=== PATIENT | female | born 1935 ===

== ENCOUNTER 2019-12-25 10:12 | Emergency (ER) | payer OTHER ==
[~2019-12-25] VITALS: Ht 157.5 cm; Wt 59.9 kg
[~2019-12-25 10:12] MED LIST: BENADRYL50 MG PO; CALTRATE 600600 MG PO; CEFADROXIL500 MG PO; METHYLPRED4 MG/DOSE- PO; NEXIUM20 MG/PACK PO; RELAGESIC TABL1 EACH PO; SYNTHROID100 MCG PO; VITAMIN A TP; VITAMIN B12-FO1 EACH; [UNRECOGNIZED DRUG - OTHER] TP
[2019-12-25] MEDS ORDERED: VALSARTAN80 MG PO (10:34)
== END 2019-12-25 12:27 | disposition home or self-care (01) ==
LOC: ER 10:12
DX: M94.0 Chondrocostal junction syndrome [Tietze] (principal); R07.89 Other chest pain; M62.830 Muscle spasm of back; S20.212S Contusion of left front wall of thorax, sequela; S20.211S Contusion of right front wall of thorax, sequela; W18.09XS Striking against other object with subsequent fall, sequela

== ENCOUNTER 2021-10-07 11:06 | Emergency (ER) | payer OTHER ==
[~2021-10-07] VITALS: Ht 160 cm; Wt 61.7 kg
[~2021-10-07 11:06] MED LIST changes: +VALSARTAN80 MG PO
[2021-10-07] MEDS ORDERED: OMEPRAZOLE MAGN20 MG PO (15:34)
[2021-10-07] MEDS ORDERED: PEPCID AC20 MG PO (15:34)
== END 2021-10-07 15:42 | disposition home or self-care (01) ==
LOC: ER 11:06
DX: K29.70 Gastritis, unspecified, without bleeding (principal)